=== PATIENT | female | born 1945 | race African-American/Black ===

== ENCOUNTER 2019-01-10 00:22 | Inpatient (IN) | payer OTHER, BC ==
[~2019-01-10] VITALS: Ht 162.6 cm; Wt 75.3 kg
[~2019-01-10 00:22] MED LIST: AMLODIPINE5 MG PO; ATENOLOL25 PO; HCTZ PO; PLA75 PO
[2019-01-10 00:28] VITALS: Ht 162.6 cm; Wt 75.3 kg
[2019-01-10 01:36] LABS: PLATELET COUNT 267 x10^3mcL (130-400); RED CELL DISTRIBUTION WIDTH 13.2 % (11.5-14.5)
[2019-01-10] MEDS ORDERED: COZAAR100 MG PO (04:39)
[2019-01-10 05:17] LABS: CALCIUM 8.5 mg/dL (8.5-10.1); CARBON DIOXIDE 24.2 mmol/L (21-32); CHLORIDE SERUM 103 mmol/L (98-107); CREATININE SERUM 1.3 mg/dL (0.6-1.0); GLUCOSE SERUM 101 mg/dL (74-106); POTASSIUM SERUM 4.1 mmol/L (3.5-5.1); SODIUM SERUM 139 mmol/L (136-145)
[2019-01-10 07:45] LABS: ALBUMIN 3.7 g/dL (3.4-5.0); ALKALINE PHOSPHATASE 109 U/L (46-116); ALT/SGPT 19 U/L (14-59); AST/SGOT 23 U/L (15-37); BILIRUBIN TOTAL 0.44 mg/dL (0.20-1.00)
[2019-01-10 08:09] LABS: CHOLESTEROL/HDL RATIO 2.1
[2019-01-10 10:06] VITALS: BP 156/74
[2019-01-10 10:47] VITALS: BP 156/74
[2019-01-10 11:47] LABS: microscopic required? NO
[2019-01-10 12:40] LABS: UA SPECIFIC GRAVITY <=1.005 (1.005-1.035); urine erythrocyte NEGATIVE (NEGATIVE)
[2019-01-10 12:49] LABS: AMPHETAMINE QUAL UR NONE DETECTED (See below)
[2019-01-10 14:08] VITALS: BP 205/102
[2019-01-10] MEDS ORDERED: PLA75 PO (14:17)
[2019-01-10 14:39] VITALS: BP 176/105
[2019-01-10 16:37] VITALS: BP 168/80
[2019-01-10 17:24] VITALS: BP 132/75
== END 2019-01-10 18:27 | disposition home or self-care (01) | DRG 304 ==
LOC: ED 00:22 → DU 04:21
PROVIDERS: Student in an Organized Health Care Education/Training Program; ADMIT Internal Medicine
DX: I16.1 Hypertensive emergency (principal); N17.0 Acute kidney failure with tubular necrosis; G45.9 Transient cerebral ischemic attack, unspecified; E86.0 Dehydration; I12.9 Hypertensive chronic kidney disease with stage 1 through stage 4 chronic kidney disease, or unspecified chronic kidney disease; N18.9 Chronic kidney disease, unspecified; Z53.29 Procedure and treatment not carried out because of patient's decision for other reasons; Z86.73 Personal history of transient ischemic attack (TIA), and cerebral infarction without residual deficits; Z79.02 Long term (current) use of antithrombotics/antiplatelets
CPT/HCPCS: 83880; G0378; Q0092